=== PATIENT | male | born 1970 ===

== ENCOUNTER 2018-08-31 14:27 | Emergency (ER) | payer BC ==
[~2018-08-31] VITALS: Ht 180.3 cm; Wt 147.4 kg
[~2018-08-31 14:27] MED LIST: CRUTCH4 USE; HYDACE5 PO; NAPR500 PO
[2018-08-31] MEDS ORDERED: Augmentin 875-1 EACH PO (16:31)
[2018-08-31] MEDS ORDERED: Percocet 5-3251 EACH PO (17:13)
== END 2018-08-31 17:49 | disposition home or self-care (01) ==
LOC: ER 14:27
DX: L02.31 Cutaneous abscess of buttock (principal); L03.317 Cellulitis of buttock; F17.200 Nicotine dependence, unspecified, uncomplicated
CPT/HCPCS: 96365; 99283-25; J2543